=== PATIENT | male | born 1985 | race African-American/Black ===

== ENCOUNTER 2023-08-22 09:40 | Emergency (ER) | payer SELFPAY ==
[~2023-08-22] VITALS: Ht 177.8 cm; Wt 90.7 kg
[2023-08-22 09:50] VITALS: O2SAT 99
[2023-08-22] MEDS ORDERED: DOXY100T2 MT (10:17)
[2023-08-22 10:42] LABS: CLARITY URINE CLEAR (CLEAR); COLOR URINE YELLOW (YELLOW); GLUCOSE URINE NEGATIVE (NEGATIVE); KETONES URINE NEGATIVE (NEGATIVE); LEUKOCYTE ESTERASE URINE NEGATIVE (NEGATIVE); NITRITE URINE NEGATIVE (NEGATIVE); OCCULT BLOOD URINE NEGATIVE (NEGATIVE); PH URINE 5.5 (4.5-8.0); PROTEIN URINE NEGATIVE (NEGATIVE); SPECIFIC GRAVITY URINE 1.021 (1.005-1.030); UROBILINOGEN URINE 0.2 E.U./dL (0.2-1.0)
[2023-08-22] MEDS: CEFTRIAXONE SODIUM 500MG VIAL IM ONE (11:04)
[2023-08-22] MEDS: LIDOCAINE HCL 1% 20ML VIAL (Pyxis) INJ INFIL ONE (11:05)
[2023-08-22 11:08] VITALS: BP 146/92; PULSE 56; RESP 16; TEMP 98.3
== END 2023-08-22 11:30 | disposition home or self-care (01) ==
LOC: ER 09:40
DX: A64 Unspecified sexually transmitted disease (principal)
CPT/HCPCS: 99283; 86592; 87491; 87591; 81003; 36415; 96372; J0696; J3490